=== PATIENT | male | born 2000 | race Caucasian/White ===

== ENCOUNTER 2018-01-02 19:02 | Emergency (ER) | payer BC ==
[~2018-01-02] VITALS: Ht 190.5 cm; Wt 60.0 kg
[2018-01-02 19:04] VITALS: BP 137/76; PULSE 86; RESP 16; TEMP 98.4; O2SAT 96
[2018-01-02] MEDS ORDERED: AZAT50 PO (20:14)
--- NOTE | 2018-01-02 20:21 | PD ---
HPI . Status post fall Chief Complaint: Fall Time Seen by Provider: 19:59 Travel History International Travel<30 days: No Contact w/Intl Traveler<30days: No Traveled to known affect area: No History of Present Illness HPI 17-year-old male was on his usual evening neighborhood run when a dog came running out of the house parking, patient ran quickly to avoid the dog tripped on the sidewalk fell hit his face sidewalk with resultant loss of consciousness abrasion to left lateral eyebrow. Patient awakened shortly thereafter, notes having pain in his right wrist and right elbow and mild headache. Patient denies any visual changes, focal weakness numbness or tingling, neck pain or stiffness. There is no injury or bite from the dog. [facility] Past Medical History Narrative Medical Past medical history reviewed Gastrointestinal Disorders: Yes (chron's disease) Tetanus Vaccination: < 5 Years Influenza Vaccination: No Past Surgical History Abdominal Surgery: Yes (large intestine removed) Social History Alcohol Use: No Tobacco Use: No Substance Use: No Allergies-Medications (Allergen,Severity, Reaction): Coded Allergies: infliximab (Verified Allergy, Unknown, Hives, 01/02/18) Reported Meds & Prescriptions Reported Meds & Active Scripts Active Reported Azathioprine 50 Mg Tab 50 Mg PO DAILY Hazardous agent use appropriate precautions for handling and disposal. Narrative Medication Allergies and medications reviewed Review of Systems Except as stated in HPI: all other systems reviewed are Neg General / Constitutional: No: Fever Eyes: No: Diploplia, Blurred Vision, Photophobia, Foreign Body Sensation, Pain , Blind Spots, Visual changes HENT: Positive: Headaches, No: Vertigo, Lightheadedness, Neck Stiffness, Neck Pain, Ear Discharge Cardiovascular: No: Chest Pain or Discomfort Respiratory: No: Shortness of Breath Gastrointestinal: No: Abdominal Pain Genitourinary: No: Dysuria Musculoskeletal: Positive: Pain, No: Edema Skin: No Rash Neurologic: No: Weakness Psychiatric: No: Depression Endocrine: No: Polydipsia Hematologic/Lymphatic: No: Easy Bruising Physical Exam Narrative GENERAL: Awake and alert oriented 3 no acute distress. Vital signs afebrile normal and stable SKIN: Warm and dry. Color is normal no diaphoresis evidence of pallor HEAD: Left lateral eyebrow abrasion/laceration. No bony step-off noted. Normocephalic. EYES: Pupils equal and round. No scleral icterus. No injection or drainage. ENT: No nasal bleeding or discharge. Mucous membranes pink and moist. NECK: Trachea midline. No JVD. CARDIOVASCULAR: Regular rate and rhythm. RESPIRATORY: No accessory muscle use. Clear to auscultation. Breath sounds equal bilaterally. GASTROINTESTINAL: Abdomen soft, non-tender, nondistended. Hepatic and splenic margins not palpable. MUSCULOSKELETAL multiple minor abrasions on all 4 extremities. Right wrist is tender to palpation range of motion however there is no obvious edema ecchymosis or bony deformities. Right elbow full range of motion with some discomfort, no obvious bony abnormalities, however patient is tender to palpation. Neurovascular intact all. NEUROLOGICAL: Awake and alert. No obvious cranial nerve deficits. Motor grossly within normal limits. Five out of 5 muscle strength in the arms and legs. Normal speech. PSYCHIATRIC: Appropriate mood and affect; insight and judgment normal. Data Data Last Documented VS Vital Signs Date Time Temp Pulse Resp B/P (MAP) Pulse Ox O2 Delivery O2 Flow Rate FiO2 01/02/18 19:04 98.4 86 16 137/76 (96) 96 Room Air Orders Orders Ct Brain W/O Iv Contrast(Rout) (01/02/18 ) Wrist, Complete ([id number]) (01/02/18 ) Elbow, Complete (4 Vws) (01/02/18 ) Support Splint (01/02/18 20:51) Lidocai-Epi 1%-1:100,000 Inj (Xylocaine- (01/02/18 21:30) MDM Medical Decision Making Medical Screen Exam Complete: Yes Emergency Medical Condition: Yes Medical Record Reviewed: Yes Differential Diagnosis Status post fall, status post head injury, left eyebrow laceration, multiple abrasions, right wrist injury, right elbow injury Narrative Course CT head normal. X-ray right elbow x-ray right wrist normal. Splint applied to right wrist, sling applied for right elbow. Abrasions cleansed by nursing staff with bacitracin dressings. Please see note by ARACELIS Loomis for repair of left eyebrow laceration. Patient given clear instructions on wound care as well as suture removal in 7 days. Patient also instructed to return promptly for worsening. Diagnosis Primary Impression: Head injury Qualified Codes: S09.90XA - Unspecified injury of head, initial encounter Additional Impressions: Facial laceration Qualified Codes: S01.81XA - Laceration without foreign body of other part of head, initial encounter Multiple abrasions Patient Instructions: Abrasion (ED), Elbow Sprain (ED), General Instructions, Head Injury (ED), Wrist Sprain (ED) Additional Instructions: Ice affected areas, wear sling, wrist splints. Thorough cleansing at least twice daily of all wounds, followed by bacitracin dressings. Suture removal of left eyebrow laceration 7 days. You may have the sutures removed here if you can arrange to have that performed as an outpatient at her [facility] or by her private physician. Return promptly for worsening. Disposition: 01 DISCHARGE HOME Condition: Stable Randal Kang MD Jan 02, 2018 20:21
--- NOTE | 2018-01-02 20:42 | RADRPT ---
EXAM DATE/TIME: 01/02/2018 20:29 [facility] COMPARISON: No previous studies available for comparison. INDICATIONS : Trauma; fall. Left frontal contusion and laceration. RADIATION DOSE: 35.14 CTDIvol (mGy) MEDICAL HISTORY : None SURGICAL HISTORY : None. ENCOUNTER: Initial ACUITY: 1 day PAIN SCALE: 4/10 LOCATION: cranial TECHNIQUE: Multiple contiguous axial images were obtained of the head. Using automated exposure control and adj ustment of the mA and/or kV according to patient size, radiation dose was kept as low as reasonably a chievable to obtain optimal diagnostic quality images. DICOM format image data is available electro nically for review and comparison. FINDINGS: CEREBRUM: The ventricles are normal for age. No evidence of midline shift, mass lesion, hemorrhage or acute in farction. No extra-axial fluid collections are seen. POSTERIOR FOSSA: The cerebellum and brainstem are intact. The 4th ventricle is midline. The cerebellopontine angle i s unremarkable. EXTRACRANIAL: The visualized portion of the orbits is intact. SKULL: The calvaria is intact. No evidence of skull fracture. CONCLUSION: No acute abnormality is identified. Rigoberto Pabon MD on January 02, 2018 at 20:38 Board Certified Radiologist. This report was verified electronically.
--- NOTE | 2018-01-02 20:55 | RADRPT ---
EXAM DATE/TIME: 01/02/2018 20:35 [facility] COMPARISON: No previous studies available for comparison. INDICATIONS : Fall. Right wrist pain. MEDICAL HISTORY : None. SURGICAL HISTORY : None. ENCOUNTER: Initial ACUITY: 1 day PAIN SCORE: 7/10 LOCATION: Right upper extremity FINDINGS: Three views of the right wrist demonstrate no fracture or dislocation. Mineralization is within yimi l limits. There is no significant arthropathy. No soft tissue abnormality or radiopaque foreign body is identified. CONCLUSION: No acute right wrist abnormality is identified. Rigoberto Pabon MD on January 02, 2018 at 20:52 Board Certified Radiologist. This report was verified electronically.
--- NOTE | 2018-01-02 20:56 | RADRPT ---
EXAM DATE/TIME: 01/02/2018 20:36 [facility] COMPARISON: No previous studies available for comparison. INDICATIONS : Fall. Right elbow pain. MEDICAL HISTORY : None. SURGICAL HISTORY : None. ENCOUNTER: Initial ACUITY: 1 day PAIN SCORE: 7/10 LOCATION: Right upper extremity FINDINGS: Four views of the right elbow demonstrate no fracture or dislocation. No joint effusion is visualized . No soft tissue abnormality or radiopaque foreign body is identified. CONCLUSION: No acute abnormality is identified. Rigoberto Pabon MD on January 02, 2018 at 20:53 Board Certified Radiologist. This report was verified electronically.
[2018-01-02] MEDS ORDERED: LIDOCAINE 1%/EPINEPHrine 1:100,000 SOLN 20 ML VIAL INFIL ONE (21:15)
[2018-01-02] MEDS ORDERED: LIDOCAINE 1%/EPINEPHrine 1:100,000 SOLN 30 ML VIAL INFIL ONE (21:30)
--- NOTE | 2018-01-02 21:44 | PD ---
Physical Exam Time Seen by Provider: 21:43 Data Data Last Documented VS Vital Signs Date Time Temp Pulse Resp B/P (MAP) Pulse Ox O2 Delivery O2 Flow Rate FiO2 01/02/18 19:04 98.4 86 16 137/76 (96) 96 Room Air Orders Orders Ct Brain W/O Iv Contrast(Rout) (01/02/18 ) Wrist, Complete ([id number]) (01/02/18 ) Elbow, Complete (4 Vws) (01/02/18 ) Support Splint (01/02/18 20:51) Lidocai-Epi 1%-1:100,000 Inj (Xylocaine- (01/02/18 21:30) MDM Medical Record Reviewed: Yes Supervised Visit with RED: No Procedures Procedure Narrative LACERATION LOCATION: Left eyebrow LENGTH: 3 cm Y shaped NUMBER OF STITCHES/MELANIE: 7 sutures REPAIR: The area of the laceration was prepped with Betadine and sterilely draped. The laceration was infiltrated with 1% lidocaine with epinephrine. The wound was copiously irrigated and explored without evidence of foreign body , tendon injury or neurovascular injury. The wound was closed using 5-0 Prolene. This was a single layer repair. A sterile dressing was applied. The patient was advised to keep the dressing clean and dry. Patient tolerated the procedure well. Ebonie Neal Jan 02, 2018 21:44
== END 2018-01-02 23:06 | disposition home or self-care (01) ==
LOC: NEPE 19:02
DX: S01.112A Laceration without foreign body of left eyelid and periocular area, initial encounter (principal); T14.8XXA Other injury of unspecified body region, initial encounter; M25.531 Pain in right wrist; M25.521 Pain in right elbow; W01.0XXA Fall on same level from slipping, tripping and stumbling without subsequent striking against object, initial encounter; Y93.02 Activity, running; Y92.480 Sidewalk as the place of occurrence of the external cause
CPT/HCPCS: 12013; 29125; 70450; 73080; 73110